=== PATIENT | female | born 1960 | race African-American/Black ===

== ENCOUNTER 2022-10-01 15:13 | Emergency (ER) | payer SELFPAY ==
[~2022-10-01] VITALS: Ht 165.1 cm; Wt 64.0 kg
[2022-10-01 16:00] VITALS: BP 140/76
[2022-10-01] MEDS ORDERED: KETOROLAC 60MG/2ML VIAL IM ONE (16:00)
[2022-10-01] MEDS: LIDOCAINE 5% PATCH TOP SCH ×2 (16:00→16:35)
[2022-10-01] MEDS ORDERED: ACETAMINOPHEN 325MG TABLET PO ONE (16:00)
[2022-10-01] MEDS ORDERED: LIDO1ADH23 TP (17:06)
[2022-10-01] MEDS ORDERED: IBUP-2028 MT (17:06)
[2022-10-01] MEDS ORDERED: TOPUD PO (17:06)
== END 2022-10-01 17:37 | disposition home or self-care (01) ==
LOC: ER 15:30
DX: M25.511 Pain in right shoulder (principal); W18.30XA Fall on same level, unspecified, initial encounter; Y93.89 Activity, other specified; Y92.89 Other specified places as the place of occurrence of the external cause; Y99.8 Other external cause status
CPT/HCPCS: 73030; 96372; 99283; J1885

== ENCOUNTER 2023-08-24 08:34 | Emergency (ER) | payer MEDICAID ==
[~2023-08-24] VITALS: Ht 165.1 cm; Wt 72.0 kg
[~2023-08-24 08:34] MED LIST: IBUP-2028 MT; LIDO1ADH23 TP; TOPUD PO
[2023-08-24 08:43] VITALS: BP 130/64; PULSE 87; RESP 18; O2SAT 99
[2023-08-24 08:45] VITALS: TEMP 98.3
[2023-08-24] MEDS: ACETAMINOPHEN 325MG TABLET PO ONE (08:45)
== END 2023-08-24 13:10 | disposition home or self-care (01) ==
LOC: ER 08:34
DX: S00.83XA Contusion of other part of head, initial encounter (principal); G89.11 Acute pain due to trauma; F14.10 Cocaine abuse, uncomplicated; W18.30XA Fall on same level, unspecified, initial encounter; Y93.89 Activity, other specified; Y92.89 Other specified places as the place of occurrence of the external cause; Y99.8 Other external cause status
CPT/HCPCS: 70486; 99284

== ENCOUNTER 2023-10-18 15:11 | Emergency (ER) | payer MEDICAID ==
[~2023-10-18] VITALS: Ht 172.7 cm; Wt 68.0 kg
[2023-10-18 15:57] VITALS: BP 125/53; PULSE 90; RESP 18; TEMP 98.1; O2SAT 98
== END 2023-10-18 15:50 | disposition left against medical advice (07) ==
LOC: ER 15:11
DX: R53.1 Weakness (principal); Z53.21 Procedure and treatment not carried out due to patient leaving prior to being seen by health care provider

== ENCOUNTER 2024-04-06 15:48 | Emergency (ER) | payer MEDICAID ==
[~2024-04-06] VITALS: Ht 162.6 cm; Wt 80.0 kg
[2024-04-06 15:50] VITALS: O2SAT 98
[2024-04-06] MEDS: ACETAMINOPHEN 325MG TABLET PO STA (15:57)
[2024-04-06] MEDS ORDERED: KETOROLAC 30MG/ML VIAL IM STA (15:57)
[2024-04-06] MEDS: KETOROLAC 30MG/ML VIAL IM NR (15:57)
[2024-04-06 16:44] LABS: CHLORIDE 111 mEq/L (98-107); POTASSIUM 4.4 mEq/L (3.5-5.1); SODIUM 143 mEq/L (136-145)
[2024-04-06 16:45] LABS: CALCIUM 8.6 mg/dL (8.7-10.4); CARBON DIOXIDE 25 mEq/L (21-32)
[2024-04-06 16:49] LABS: BASOPHILS % 0.6 % (0.0-2.0); EOSINOPHILS % 3.2 % (0.0-5.0); HEMATOCRIT. 36.8 % (36.0-48.0); HEMOGLOBIN. 11.8 g/dL (12.0-16.0); LYMPHOCYTES % 33.8 % (20.0-50.0); MEAN CORPUSCULAR HEMOGLOBIN 28.3 pg (28.0-32.0); MEAN CORPUSCULAR HGB CONC 32.2 g/dL (31.0-37.0); MEAN CORPUSCULAR VOLUME 87.9 fL (81.0-99.0); MEAN PLATELET VOLUME 7.5 fl (7.4-10.4); MONOCYTES % 11.5 % (2.0-8.0); NEUTROPHILS % 50.9 % (40.0-76.0); PLATELET 299 x1000/uL (130-400); RED BLOOD CELL COUNT 4.18 mill/uL (4.2-5.4); RED CELL DISTRIBUTION WIDTH 14.8 % (11.6-14.6); WHITE BLOOD COUNT 4.7 x1000/uL (4.5-11.0)
[2024-04-06 16:50] LABS: CREATININE 0.8 mg/dL (0.6-1.0); GLUCOSE 97 mg/dL (70-105); UREA NITROGEN BLOOD 28 mg/dL (9-23)
[2024-04-06] MEDS ORDERED: ACETAMINOPHEN 500MG TABLET PO SCH (19:30)
[2024-04-06] MEDS ORDERED: ACETAMINOPHEN 325MG TABLET PO SCH (19:30)
[2024-04-06 19:33] VITALS: BP 131/76; PULSE 82; RESP 16; TEMP 37.05852; O2SAT 98
[2024-04-06] MEDS ORDERED: OXYC-662 MT (19:44)
== END 2024-04-06 21:36 | disposition home or self-care (01) ==
LOC: ER 15:48
DX: M79.662 Pain in left lower leg (principal); J45.909 Unspecified asthma, uncomplicated; F10.20 Alcohol dependence, uncomplicated; F14.90 Cocaine use, unspecified, uncomplicated; Y90.9 Presence of alcohol in blood, level not specified
CPT/HCPCS: 80048; 85025; 36415; 93971; 71045; 73560; 73590; 73600; 73620; 96372; 99285; J1885; Z7610